=== PATIENT | female | born 1945 | race Caucasian/White ===

== ENCOUNTER 2024-05-10 15:04 | Day surgery (SDC) | payer MEDICARE, OTHER ==
[2024-05-09 12:58] LABS: BASOPHILS % (AUTO) 0.4 % (0-1); EOSINOPHILS % (AUTO) 0.8 % (0-6); HEMATOCRIT 40.9 % (35.0-45.0); HEMOGLOBIN 13.7 g/dl (12.0-16.0); LYMPHOCYTES # (AUTO) 1.2 X10'3 (1.1-4.8); LYMPHOCYTES % (AUTO) 20.4 % (21-51); MEAN CORPUSCULAR HEMOGLOBIN 31.6 PG (27.0-31.0); MEAN CORPUSCULAR HGB CONC 33.4 g/dL (33.0-36.5); MEAN CORPUSCULAR VOLUME 94.5 FL (78-98); MEAN PLATELET VOLUME 8.6 FL (7.4-10.4); MONOCYTES # (AUTO) 0.5 X10'3 (0-0.9); MONOCYTES % (AUTO) 8.3 % (2-12); NEUTROPHILS # (AUTO) 4.1 X10'3 (1.8-7.7); NEUTROPHILS % (AUTO) 70.1 % (42-75); PLATELET COUNT 214 X10'3 (140-440); RED BLOOD COUNT 4.32 X10'6 (4.20-5.60); RED CELL DISTRIBUTION WIDTH 13.6 % (11.5-14.5); WHITE BLOOD COUNT 5.8 X10'3 (4.5-11.0)
[2024-05-09 13:19] LABS: ALBUMIN 3.7 G/DL (3.4-5.0); ANION GAP 10 (8-16); BLOOD UREA NITROGEN 19 MG/DL (7-18); BUN/CREATININE RATIO 21.8 (10.0-20.0); CALCIUM 9.5 MG/DL (8.5-10.1); CHLORIDE 102 MMOL/L (99-107); CREATININE 0.87 MG/DL (0.40-0.90); GLUCOSE 101 MG/DL (70-104); SODIUM 137 MMOL/L (135-145); TOTAL CARBON DIOXIDE 24.6 MMOL/L (24-32); eGFR 63 ML/MIN
[2024-05-09 13:23] LABS: PROTHROMBIN TIME 10.9 SECONDS (9.0-12.0)
[~2024-05-10] VITALS: Ht 154.9 cm; Wt 71.9 kg
[2024-05-10] MEDS ORDERED: normal saline 1000ml 1,000 ML IV SCH (15:50)
[2024-05-10] MEDS ORDERED: diphenhydrAMINE 25mg capsule PO ONE (15:50)
[2024-05-10] MEDS ORDERED: amiodarone 150mg/dext, iso-os 100 ML IV ONE (15:50)
[2024-05-10] MEDS ORDERED: atropine 0.1mg/ml 10ml syringe IV ONE (15:50)
[2024-05-10] MEDS ORDERED: DOCO1CAP11 PO (16:25)
[2024-05-10] MEDS ORDERED: APIX5TAB3 PO (16:25)
[2024-05-10] MEDS ORDERED: FLEC100T3 PO (16:25)
[2024-05-10] MEDS ORDERED: [UNRECOGNIZED DRUG - CODE] PO (16:25)
[2024-05-10] MEDS ORDERED: ROSU20TA73 PO (16:25)
[2024-05-10] MEDS ORDERED: UBIQ200C PO (16:25)
[2024-05-10] MEDS ORDERED: DILT-36 PO (16:25)
== END 2024-05-10 17:00 | disposition home or self-care (01) ==
LOC: SSTAY O 15:04
PROVIDERS: ATTEND Internal Medicine Cardiovascular Disease
DX: I48.0 Paroxysmal atrial fibrillation (principal); Z53.8 Procedure and treatment not carried out for other reasons; I10 Essential (primary) hypertension; E78.5 Hyperlipidemia, unspecified; E66.3 Overweight; I73.9 Peripheral vascular disease, unspecified; Z79.01 Long term (current) use of anticoagulants; Z79.899 Other long term (current) drug therapy; Z90.710 Acquired absence of both cervix and uterus; Z98.890 Other specified postprocedural states; Z68.30 Body mass index [BMI] 30.0-30.9, adult; Z88.5 Allergy status to narcotic agent
CPT/HCPCS: 36415; 80048; 85025; 85610; 93005; J7030